=== PATIENT | female | born 1940 | race Caucasian/White ===

== ENCOUNTER → 2016-12-21 | Outpatient (CLI) | payer OTHER ==
[~2016-12-21] MED LIST: APIX5TAB OR; ASCO100076 PO; CHOL400D PO; DILT180C62 PO; DOXY-216 PO; TIOTCAP INH
[2016-12-21 07:06] LABS: Urine RBC None Seen /hpf (0 - 4)
[2016-12-21 07:29] LABS: Basophils # (auto) 0 uL; Basophils % (auto) 0.4 % (0.0-2.0); Eosinophils # (auto) 0.2 uL; Eosinophils % (auto) 2.4 % (0.0-7.0); Hematocrit 42.9 % (36.0-46.0); Hemoglobin 14.1 g/dL (12.2-16.2); Lymphocytes # (auto) 0.9 uL; Lymphocytes % (auto) 14.3 % (10.0-50.0); Mean Corpuscular Hemoglobin 32.9 pg (28.0-32.0); Mean Corpuscular Hgb Conc. 32.9 g/dL (32.0-36.0); Mean Corpuscular Volume 99.9 fL (80.0-100.0); Mean Platelet Volume 7.6 fL (7.4-10.4); Monocytes # (auto) 0.4 uL; Monocytes % (auto) 5.7 % (0.0-12.0); Neutrophils % (auto) 77.2 % (37.0-80.0); Platelet Count (auto) 297 10^3/uL (140-450); Red Cell Distribution Width 13.6 % (11.6-16.0); White Blood Cell 6.5 10^3/uL (4.4-10.8)
[2016-12-21 07:47] LABS: Albumin 4.1 g/dL (3.4-5.0); BUN/Creatinine Ratio 22.7; Bilirubin, Total 0.5 mg/dL (0.2-1.0); Calcium 8.9 mg/dL (8.5-10.1); Potassium 4.1 mmol/L (3.5-5.1); Total Protein 7.5 g/dL (6.4-8.2)
[2016-12-21 07:48] LABS: Urine Bilirubin Negative (Negative); Urine Blood Negative /uL (Negative); Urine Color Yellow (Yellow); Urine Glucose Normal (Normal); Urine Ketone Negative (Negative); Urine Mucus FEW (None Seen); Urine Urobilinogen Normal (Negative); Urine WBC Clumps PRESENT /hpf (None Seen)
[2016-12-21 07:51] LABS: Urine Nitrite POSITIVE (Negative)
== END | disposition home or self-care (01) ==
LOC: LAB 06:29
DX: J44.9 Chronic obstructive pulmonary disease, unspecified (principal); M54.16 Radiculopathy, lumbar region; Z12.11 Encounter for screening for malignant neoplasm of colon
CPT/HCPCS: 36415; 80053; 80061; 81001; 83036; 84443; 85025

== ENCOUNTER → 2017-05-12 | Outpatient (CLI) | payer OTHER ==
[2017-05-12 07:56] LABS: Basophils # (auto) 0 uL; Basophils % (auto) 0.4 % (0.0-2.0); CONDITION Y; Eosinophils # (auto) 0.2 uL; Eosinophils % (auto) 2.8 % (0.0-7.0); Hematocrit 42.3 % (36.0-46.0); Hemoglobin 13.6 g/dL (12.2-16.2); Lymphocytes # (auto) 0.8 uL; Lymphocytes % (auto) 11.6 % (10.0-50.0); Mean Corpuscular Hemoglobin 32.6 pg (28.0-32.0); Mean Corpuscular Hgb Conc. 32.2 g/dL (32.0-36.0); Mean Corpuscular Volume 101.1 fL (80.0-100.0); Monocytes # (auto) 0.4 uL; Monocytes % (auto) 5.7 % (0.0-12.0); Neutrophils # (auto) 5.2 uL; Neutrophils % (auto) 79.5 % (37.0-80.0); Platelet Count (auto) 300 10^3/uL (140-450); Red Cell Distribution Width 13.1 % (11.6-16.0); White Blood Cell 6.6 10^3/uL (4.4-10.8)
[2017-05-12 08:07] LABS: Urine Bilirubin Negative (Negative); Urine Blood Negative /uL (Negative); Urine Color Yellow (Yellow); Urine Glucose Normal (Normal); Urine Ketone Negative (Negative); Urine Nitrite Negative (Negative); Urine RBC 1 /hpf (0 - 4); Urine pH 7.5 (5.0-8.0)
[2017-05-12 08:36] LABS: Bilirubin, Total 0.4 mg/dL (0.2-1.0); Calcium 9.6 mg/dL (8.5-10.1); Total Protein 7.5 g/dL (6.4-8.2)
== END | disposition home or self-care (01) ==
LOC: LAB 06:25
PROVIDERS: ATTEND Family Medicine
DX: J44.9 Chronic obstructive pulmonary disease, unspecified (principal); R73.9 Hyperglycemia, unspecified; E03.9 Hypothyroidism, unspecified; N39.0 Urinary tract infection, site not specified
CPT/HCPCS: 36415; 80053; 80061; 81001; 83036; 84443; 85025; 87086

== ENCOUNTER → 2018-08-29 | Outpatient (CLI) | payer OTHER ==
[2018-08-29 08:19] LABS: Basophils # (auto) 0 uL; Basophils % (auto) 0.6 % (0.0-2.0); Eosinophils # (auto) 0.1 uL; Eosinophils % (auto) 1.2 % (0.0-7.0); Hematocrit 41.9 % (36.0-46.0); Hemoglobin 13.2 g/dL (12.2-16.2); Lymphocytes # (auto) 0.5 uL; Lymphocytes % (auto) 11.5 % (10.0-50.0); Mean Corpuscular Hemoglobin 31.6 pg (28.0-32.0); Mean Corpuscular Hgb Conc. 31.6 g/dL (32.0-36.0); Mean Corpuscular Volume 100.1 fL (80.0-100.0); Monocytes # (auto) 0.3 uL; Monocytes % (auto) 5.9 % (0.0-12.0); Neutrophils # (auto) 3.7 uL; Neutrophils % (auto) 80.8 % (37.0-80.0); Nucleated Red Blood Cells % 0.1 %; Platelet Count (auto) 253 10^3/uL (140-450); Red Blood Cells 4.19 10^6/uL (4.0-5.20); Red Cell Distribution Width 13.1 % (11.8-14.3); White Blood Cell 4.6 10^3/uL (4.4-10.8)
[2018-08-29 08:32] LABS: INR 0.91 (0.9-1.15); Partial Thromboplastin Time 29.1 sec (23.78-33.04); Prothrombin Time 9.8 sec (9.27-12.13); Urine Amorphous Crystal FEW /hpf (None Seen); Urine Bacteria NONE SEEN /hpf (None Seen); Urine Blood Negative /uL (Negative); Urine Specific Gravity 1.016 (1.001-1.035); Urine WBC 6 /hpf (0 - 5)
[2018-08-29 08:51] LABS: Albumin 3.9 g/dL (3.4-5.0); Potassium 3.9 mmol/L (3.5-5.1)
[2018-08-29 08:58] LABS: Bilirubin, Total 0.4 mg/dL (0.2-1.0); Calcium 9.5 mg/dL (8.5-10.1); Total Protein 8.2 g/dL (6.4-8.2)
== END | disposition home or self-care (01) ==
LOC: LAB 07:02
PROVIDERS: ATTEND Family Medicine
DX: I48.0 Paroxysmal atrial fibrillation (principal); I10 Essential (primary) hypertension; J44.9 Chronic obstructive pulmonary disease, unspecified; Z79.899 Other long term (current) drug therapy
CPT/HCPCS: 36415; 80053; 80061; 81001; 82306; 82607; 84443; 85025; 85610; 85730

== ENCOUNTER → 2019-11-23 | Outpatient (CLI) | payer OTHER ==
[~2019-11-23] MED LIST changes: -DOXY-216 PO; +DOXY-286 PO
[2019-11-23 08:18] LABS: Basophils # (auto) 0 10 ^3/uL (0-0.2); Basophils % (auto) 0.6 % (0.0-2.0); Eosinophils # (auto) 0.1 10 ^3/uL (0-0.8); Eosinophils % (auto) 1.5 % (0.0-7.0); Hematocrit 39.9 % (36.0-46.0); Hemoglobin 12.9 g/dL (12.2-16.2); Lymphocytes # (auto) 0.5 10 ^3/uL (0.4-5.4); Lymphocytes % (auto) 9.5 % (10.0-50.0); Mean Corpuscular Hemoglobin 31.2 pg (28.0-32.0); Mean Corpuscular Hgb Conc. 32.3 g/dL (32.0-36.0); Mean Corpuscular Volume 96.8 fL (80.0-100.0); Monocytes # (auto) 0.3 10 ^3/uL (0-1.3); Monocytes % (auto) 6.6 % (0.0-12.0); Neutrophils # (auto) 4.3 10 ^3/uL (1.6-8.6); Neutrophils % (auto) 81.8 % (37.0-80.0); Platelet Count (auto) 250 10^3/uL (140-450); Red Blood Cells 4.13 10^6/uL (4.0-5.20); Red Cell Distribution Width 13.5 % (11.8-14.3); White Blood Cell 5.3 10^3/uL (4.4-10.8)
[2019-11-23 08:26] LABS: Urine Bacteria NONE SEEN /hpf (None Seen); Urine Blood Negative /uL (Negative); Urine Specific Gravity 1.013 (1.001-1.035); Urine WBC <1 /hpf (0 - 5)
[2019-11-23 08:54] LABS: Potassium 3.6 mmol/L (3.5-5.1)
[2019-11-23 09:05] LABS: Albumin 3.5 g/dL (3.4-5.0); BUN/Creatinine Ratio 19.6; Bilirubin, Total 0.3 mg/dL (0.2-1.0); Calcium 9.3 mg/dL (8.5-10.1); Total Protein 7.9 g/dL (6.4-8.2)
== END | disposition home or self-care (01) ==
LOC: LAB 07:14
PROVIDERS: ATTEND Family Medicine
DX: I48.0 Paroxysmal atrial fibrillation (principal); I10 Essential (primary) hypertension; E78.49 Other hyperlipidemia; E55.9 Vitamin D deficiency, unspecified; J44.9 Chronic obstructive pulmonary disease, unspecified
CPT/HCPCS: 36415; 80053; 80061; 81001; 82306; 82607; 84443; 85025

== ENCOUNTER 2020-12-06 11:12 | Inpatient (IN) | payer OTHER ==
[~2020-12-06] VITALS: Ht 160 cm; Wt 42.4 kg
[2020-12-06 12:21] LABS: Basophils # (auto) 0 10 ^3/uL (0-0.2); Basophils % (auto) 0.4 % (0.0-2.0); Eosinophils # (auto) 0.1 10 ^3/uL (0-0.8); Eosinophils % (auto) 1.3 % (0.0-7.0); Hematocrit 36.6 % (36.0-46.0); Hemoglobin 12.1 g/dL (12.2-16.2); Lymphocytes # (auto) 0.5 10 ^3/uL (0.4-5.4); Mean Corpuscular Hemoglobin 32.8 pg (28.0-32.0); Mean Corpuscular Hgb Conc. 33.2 g/dL (32.0-36.0); Mean Corpuscular Volume 98.8 fL (80.0-100.0); Monocytes # (auto) 0.4 10 ^3/uL (0-1.3); Monocytes % (auto) 8.7 % (0.0-12.0); Neutrophils # (auto) 3.7 10 ^3/uL (1.6-8.6); Neutrophils % (auto) 79.6 % (37.0-80.0); Nucleated Red Blood Cells % 0.1 %; Platelet Count (auto) 205 10^3/uL (140-450); Red Cell Distribution Width 13.6 % (11.8-14.3); White Blood Cell 4.6 10^3/uL (4.4-10.8)
[2020-12-06 12:46] LABS: Chloride 97 mmol/L (98-107); Sodium 141 mmol/L (136-145)
[2020-12-06 12:51] LABS: Alanine Aminotransferase 18 U/L (13-56); Albumin 3.4 g/dL (3.4-5.0); Anion Gap 4 (5-15); Aspartate Aminotransferase 17 U/L (15-37); Blood Urea Nitrogen 8 mg/dL (7-18); Calcium 8.2 mg/dL (8.5-10.1); Carbon Dioxide 40 mmol/L (21-32); GFR African American 164 mL/min; GFR Non-African American 136 mL/min; Glucose 85 mg/dL (74-106)
[2020-12-06 12:56] LABS: Alkaline Phosphatase 74 U/L (45-117); Bilirubin, Total 0.3 mg/dL (0.2-1.0); Total Protein 6.9 g/dL (6.4-8.2)
[2020-12-06] MEDS ORDERED: LORazepam 2MG/ML-1ML VIAL IV ONE (14:30)
[2020-12-06] MEDS ORDERED: SODIUM CHLORIDE 0.9% 1,000 ML IV ONE (15:00)
[2020-12-06] MEDS ORDERED: ACETAMINOPHEN 325 MG TAB PO PRN (17:00)
[2020-12-06] MEDS ORDERED: NITROGLYCERIN 0.4 MG SL TAB SL PRN (17:00)
[2020-12-06] MEDS ORDERED: hydrALAZINE HCL 20 MG/ML VL IV PRN (17:00)
[2020-12-06] MEDS ORDERED: ONDANSETRON HCL 4 MG/2 ML VIAL IV PRN (17:00)
[2020-12-06] MEDS ORDERED: MORPHINE SULF INJ 2 MG/ML SYRINGE 1ML IV PRN ×2 (17:00)
[2020-12-06] MEDS ORDERED: LORazepam 0.5 MG TAB PO PRN (17:00)
[2020-12-06] MEDS ORDERED: DOCUSATE CALCIUM 240 MG CAP PO PRN (17:00)
[2020-12-06 17:03] LABS: Urine Amorphous Crystal FEW /hpf (None Seen); Urine Bacteria FEW /hpf (None Seen); Urine Blood Negative /uL (Negative); Urine Hyaline Cast FEW /lpf (0 - 2); Urine Mucus FEW (None Seen); Urine Specific Gravity 1.029 (1.001-1.035); Urine WBC 56 /hpf (0 - 5)
[2020-12-06] MEDS: IPRATROPIUM BROM 0.5 MG/2.5ML INH SOL NEB SCH ×2 (18:20→18:35)
[2020-12-06] MEDS: BUDESONIDE (INHALATION) 0.5 MG/2 ML NEB NEB SCH ×2 (18:20→18:35)
[2020-12-06 19:29] VITALS: BP 118/83
[2020-12-06 20:50] VITALS: BP 134/55
[2020-12-06] MEDS: APIXABAN 2.5 MG TAB PO SCH (21:12)
[2020-12-06] MEDS ORDERED: PATIENTS OWN MEDICATION (eliquis 5 MG) PO SCH (22:00)
[2020-12-07] MEDS ORDERED: IPRATROPIUM BROM 0.5 MG/2.5ML INH SOL NEB PRN (02:45)
[2020-12-07 05:00] VITALS: BP 127/56
[2020-12-07 06:51] LABS: Basophils # (auto) 0 10 ^3/uL (0-0.2); Basophils % (auto) 0.3 % (0.0-2.0); Eosinophils # (auto) 0 10 ^3/uL (0-0.8); Hematocrit 36.9 % (36.0-46.0); Lymphocytes # (auto) 0.4 10 ^3/uL (0.4-5.4); Lymphocytes % (auto) 10.8 % (10.0-50.0); Mean Corpuscular Hemoglobin 32.4 pg (28.0-32.0); Mean Corpuscular Hgb Conc. 32.4 g/dL (32.0-36.0); Mean Corpuscular Volume 99.8 fL (80.0-100.0); Monocytes # (auto) 0.3 10 ^3/uL (0-1.3); Monocytes % (auto) 7.6 % (0.0-12.0); Neutrophils # (auto) 2.9 10 ^3/uL (1.6-8.6); Neutrophils % (auto) 80.3 % (37.0-80.0); Nucleated Red Blood Cells % 0.1 %; Platelet Count (auto) 197 10^3/uL (140-450); Red Blood Cells 3.69 10^6/uL (4.0-5.20); Red Cell Distribution Width 13.5 % (11.8-14.3); White Blood Cell 3.6 10^3/uL (4.4-10.8)
[2020-12-07 07:04] LABS: Albumin 3.5 g/dL (3.4-5.0); Calcium 8.7 mg/dL (8.5-10.1); Potassium 4.8 mmol/L (3.5-5.1)
[2020-12-07 07:06] LABS: INR 0.97 (0.9-1.15)
[2020-12-07 07:09] LABS: Bilirubin, Total 0.4 mg/dL (0.2-1.0); Total Protein 7.1 g/dL (6.4-8.2)
[2020-12-07 09:00] VITALS: BP 143/70
[2020-12-07] MEDS: PANTOPRAZOLE 40 MG TAB PO SCH (09:18)
[2020-12-07] MEDS: dilTIAZem HCL 180MG ER CAP PO SCH (09:19)
[2020-12-07] MEDS: APIXABAN 2.5 MG TAB PO SCH ×2 (09:19→20:08)
[2020-12-07] MEDS ORDERED: ENOXAPARIN SOD 40 MG/0.4 ML SYRINGE SC SCH (10:00)
[2020-12-07] MEDS ORDERED: GADOTERATE MEG 10 MMOL/20ml INJ (0.5MMOL/ml) IV ONE (10:10)
[2020-12-07 13:00] VITALS: BP 133/65
[2020-12-07 17:00] VITALS: BP 124/51
[2020-12-07 22:00] VITALS: BP 115/55
[2020-12-08 05:00] VITALS: BP 123/59
[2020-12-08 06:48] LABS: Basophils # (auto) 0 10 ^3/uL (0-0.2); Basophils % (auto) 0.7 % (0.0-2.0); Eosinophils # (auto) 0.1 10 ^3/uL (0-0.8); Eosinophils % (auto) 2.5 % (0.0-7.0); Hematocrit 35.4 % (36.0-46.0); Hemoglobin 11.9 g/dL (12.2-16.2); Lymphocytes # (auto) 0.5 10 ^3/uL (0.4-5.4); Lymphocytes % (auto) 15.3 % (10.0-50.0); Mean Corpuscular Hgb Conc. 33.5 g/dL (32.0-36.0); Mean Corpuscular Volume 98.7 fL (80.0-100.0); Monocytes # (auto) 0.3 10 ^3/uL (0-1.3); Monocytes % (auto) 8.4 % (0.0-12.0); Neutrophils # (auto) 2.4 10 ^3/uL (1.6-8.6); Neutrophils % (auto) 73.1 % (37.0-80.0); Nucleated Red Blood Cells % 0.1 %; Platelet Count (auto) 180 10^3/uL (140-450); Red Blood Cells 3.59 10^6/uL (4.0-5.20); White Blood Cell 3.3 10^3/uL (4.4-10.8)
[2020-12-08 07:03] LABS: Calcium 8.6 mg/dL (8.5-10.1); Magnesium 2.3 mg/dL (1.6-2.6); Potassium 4.2 mmol/L (3.5-5.1)
[2020-12-08 07:05] LABS: BUN/Creatinine Ratio 47.1
[2020-12-08 08:00] VITALS: BP 115/64
[2020-12-08 09:00] VITALS: BP 115/80
[2020-12-08] MEDS: APIXABAN 2.5 MG TAB PO SCH (09:06)
[2020-12-08] MEDS: dilTIAZem HCL 180MG ER CAP PO SCH (09:13)
[2020-12-08] MEDS: PANTOPRAZOLE 40 MG TAB PO SCH (09:13)
[2020-12-08 11:54] VITALS: BP 115/64
[2020-12-08 12:32] VITALS: BP 115/64
[2020-12-08 12:36] VITALS: BP 115/64
== END 2020-12-08 13:03 | disposition home or self-care (01) | DRG 55 ==
LOC: ER 11:12 → TELE 11:13 → TELE-EAST 21:06 → TELE-CENTR 12-07 02:21
PROVIDERS: ADMIT Family Medicine; ATTEND Family Medicine
DX: D32.0 Benign neoplasm of cerebral meninges (principal); I48.20 Chronic atrial fibrillation, unspecified; J96.10 Chronic respiratory failure, unspecified whether with hypoxia or hypercapnia; D64.9 Anemia, unspecified; E83.51 Hypocalcemia; Z20.822 Contact with and (suspected) exposure to COVID-19; F03.90 Unspecified dementia, unspecified severity, without behavioral disturbance, psychotic disturbance, mood disturbance, and anxiety; F17.200 Nicotine dependence, unspecified, uncomplicated; H91.93 Unspecified hearing loss, bilateral; J44.9 Chronic obstructive pulmonary disease, unspecified; Z79.01 Long term (current) use of anticoagulants; Z81.8 Family history of other mental and behavioral disorders; Z82.0 Family history of epilepsy and other diseases of the nervous system; Z82.3 Family history of stroke; Z82.49 Family history of ischemic heart disease and other diseases of the circulatory system; Z79.899 Other long term (current) drug therapy; Z88.8 Allergy status to other drugs, medicaments and biological substances; Z83.42 Family history of familial hypercholesterolemia
CPT/HCPCS: 36415; 70450; 70553; 71045; 80048; 80053; 81001; 82306; 83735; 84443; 84484; 85025; 85610; 87081; 87086; 87426; 93005; 96360; G0378

== ENCOUNTER 2021-04-28 18:39 | Emergency (ER) | payer OTHER ==
[~2021-04-28 18:39] MED LIST changes: -TIOTCAP INH
[2021-04-28 20:12] LABS: Basophils # (auto) 0 10 ^3/uL (0-0.2); Eosinophils # (auto) 0 10 ^3/uL (0-0.8); Hematocrit 25.3 % (36.0-46.0); Hemoglobin 8.4 g/dL (12.2-16.2); Lymphocytes # (auto) 0.3 10 ^3/uL (0.4-5.4); Lymphocytes % (auto) 3.9 % (10.0-50.0); Mean Corpuscular Hemoglobin 32.8 pg (28.0-32.0); Mean Corpuscular Volume 99.2 fL (80.0-100.0); Monocytes # (auto) 0.6 10 ^3/uL (0-1.3); Monocytes % (auto) 7.5 % (0.0-12.0); Neutrophils # (auto) 7.6 10 ^3/uL (1.6-8.6); Neutrophils % (auto) 88.6 % (37.0-80.0); Red Blood Cells 2.55 10^6/uL (4.0-5.20); Red Cell Distribution Width 13.4 % (11.8-14.3); White Blood Cell 8.6 10^3/uL (4.4-10.8)
[2021-04-28 20:20] LABS: INR 1.08 (0.9-1.15)
[2021-04-28 20:25] LABS: BUN/Creatinine Ratio 38.5; Calcium 8.9 mg/dL (8.5-10.1); Potassium 4.6 mmol/L (3.5-5.1)
[2021-04-28 20:27] LABS: Bilirubin, Total 0.5 mg/dL (0.2-1.0)
[2021-04-28] MEDS ORDERED: SODIUM CHLORIDE 0.9% 1,000 ML IV ONE (21:15)
[2021-04-28] MEDS ORDERED: ONDANSETRON HCL 4 MG/2 ML VIAL IV ONE (22:00)
[2021-04-28] MEDS ORDERED: fentaNYL CITRATE 100 MCG/2 ML VL IV ONE (22:00)
[2021-04-28 22:28] LABS: Urine Bacteria FEW /hpf (None Seen); Urine Blood Negative /uL (Negative); Urine Hyaline Cast MOD /lpf (0 - 2); Urine Mucus MODERATE (None Seen); Urine Specific Gravity 1.023 (1.001-1.035); Urine WBC 6 /hpf (0 - 5)
[2021-04-28] MEDS ORDERED: cefTRIAXone 1GM/50ML D5W 50 ML IV ONE (23:00)
[2021-04-29 00:05] VITALS: BP 129/40
== END 2021-04-29 00:24 | disposition short-term general hospital (02) ==
LOC: EDBD 18:39 → ER 18:42
DX: S72.142A Displaced intertrochanteric fracture of left femur, initial encounter for closed fracture (principal); S12.041A Nondisplaced lateral mass fracture of first cervical vertebra, initial encounter for closed fracture; S05.12XA Contusion of eyeball and orbital tissues, left eye, initial encounter; S05.11XA Contusion of eyeball and orbital tissues, right eye, initial encounter; R51.9 Headache, unspecified; I48.91 Unspecified atrial fibrillation; J44.9 Chronic obstructive pulmonary disease, unspecified; Z20.822 Contact with and (suspected) exposure to COVID-19; Z88.6 Allergy status to analgesic agent; Z79.899 Other long term (current) drug therapy; Z87.891 Personal history of nicotine dependence; W01.0XXA Fall on same level from slipping, tripping and stumbling without subsequent striking against object, initial encounter; Y93.89 Activity, other specified; Y92.89 Other specified places as the place of occurrence of the external cause; Y99.8 Other external cause status
CPT/HCPCS: 36415; 36600; 70450; 70486; 71045; 72125; 73502; 73552; 80053; 81001; 82550; 82805; 83605; 85025; 85610; 87426; 93005; 96361; 96365; 96375; 99285; J0696; J2405; J3010; J7030